=== PATIENT | female | born 1985 | race Caucasian/White ===

== ENCOUNTER 2019-09-26 10:46 | Emergency (ER) | payer SELFPAY ==
[~2019-09-26] VITALS: Ht 170.2 cm; Wt 72.7 kg
[2019-09-26 10:49] VITALS: TEMP 97.8
[2019-09-26] MEDS ORDERED: ADIPEX-P37.5 MG PO (11:20)
[2019-09-26] MEDS ORDERED: TOPAMAX 25MG25 M1 PO (11:20)
[2019-09-26 12:05] VITALS: BP 123/96; PULSE 98
== END 2019-09-26 11:50 | disposition home or self-care (01) ==
LOC: COL.ER 10:46 → EDBD 10:48 → COL.ER 10:48
DX: S09.90XA Unspecified injury of head, initial encounter (principal); S01.01XA Laceration without foreign body of scalp, initial encounter; W20.8XXA Other cause of strike by thrown, projected or falling object, initial encounter; Y92.59 Other trade areas as the place of occurrence of the external cause

== ENCOUNTER → 2024-04-30 | Outpatient (REF) | payer OTHER, BC ==
[~2024-04-30] MED LIST: ADIPEX-P37.5 MG PO; TOPAMAX 25MG25 M1 PO
== END ==
LOC: ZCOL.LAB 16:03
DX: J32.9 Chronic sinusitis, unspecified (principal); J33.9 Nasal polyp, unspecified